=== PATIENT | female | born 1945 | race Caucasian/White ===

== ENCOUNTER 2024-05-06 14:46 | Inpatient (IN) | payer MEDICARE, MEDICAID ==
[~2024-05-06] VITALS: Ht 154.9 cm; Wt 42.9 kg
[~2024-05-06 14:46] MED LIST: MAGN296S89 PO
[2024-05-06 15:37] LABS: BASOPHILS % (AUTO) 0.5 % (0-1); EOSINOPHILS % (AUTO) 0.5 % (0-6); HEMATOCRIT 36.7 % (35.0-45.0); HEMOGLOBIN 12.4 g/dl (12.0-16.0); MEAN CORPUSCULAR HEMOGLOBIN 31.6 PG (27.0-31.0); MEAN CORPUSCULAR HGB CONC 33.7 g/dL (33.0-36.5); MEAN PLATELET VOLUME 7.8 FL (7.4-10.4); MONOCYTES # (AUTO) 0.4 X10'3 (0-0.9); NEUTROPHILS # (AUTO) 4.5 X10'3 (1.8-7.7); PLATELET COUNT 355 X10'3 (140-440); RED BLOOD COUNT 3.91 X10'6 (4.20-5.60); RED CELL DISTRIBUTION WIDTH 13.7 % (11.5-14.5); WHITE BLOOD COUNT 5.9 X10'3 (4.5-11.0)
[2024-05-06] MEDS: LIDOcaine 1% W/epiNEPHrine 1:100,000 20ml vial IJ ONE (15:55)
[2024-05-06 15:57] LABS: ALBUMIN 3.9 G/DL (3.4-5.0); ANION GAP 9 (8-16); BLOOD UREA NITROGEN 32 MG/DL (7-18); BUN/CREATININE RATIO 16.7 (10.0-20.0); CALCIUM 9.9 MG/DL (8.5-10.1); CHLORIDE 102 MMOL/L (99-107); CREATININE 1.92 MG/DL (0.40-0.90); GLUCOSE 99 MG/DL (70-104); POTASSIUM 4.2 MMOL/L (3.5-5.1); PRO BRAIN NATRIURETIC PEPTIDE 799 PG/ML (0-450); SODIUM 140 MMOL/L (135-145); TOTAL CARBON DIOXIDE 28.8 MMOL/L (24-32); eCRCL 16 ML/MIN; eGFR 25 ML/MIN
[2024-05-06 16:52] LABS: APTT 23 SECONDS (22-32); INR 0.9 INR; PROTHROMBIN TIME 9.9 SECONDS (9.0-12.0)
[2024-05-06] MEDS ORDERED: ondansetron/PF 4mg/2ml inj IV PRN (17:25)
[2024-05-06] MEDS ORDERED: magnesium sulf-water 4G/100mL 100 ML IV PRN (17:25)
[2024-05-06] MEDS ORDERED: potassium Cl 40MEQ/1/2NS 520ml 520 ML IV PRN (17:25)
[2024-05-06] MEDS ORDERED: potassium Cl 20 mEq SR tablet PO PRN ×2 (17:25)
[2024-05-06] MEDS ORDERED: magnesium Cl slow-release 64mg tablet PO PRN (17:25)
[2024-05-06] MEDS ORDERED: magnesium sulf-water 2g/50mL 50 ML IV PRN (17:25)
[2024-05-06] MEDS: methylPREDNISolone sod succ 125mg/2ml vial IV ONE (17:44)
[2024-05-06] MEDS: normal saline 1000ml 1,000 ML IV SCH (17:44)
[2024-05-06] MEDS: morphine 2 MG/ML inj. syringe IV ONE (17:44)
[2024-05-06] MEDS: ipratropium/albuterol 3ml nebule NEB ONE (17:56)
[2024-05-06 18:01] VITALS: PULSE 83; RESP 15; O2SAT 97
[2024-05-06 18:06] VITALS: PULSE 82; RESP 17; O2SAT 94
[2024-05-06] MEDS: albuterol 2.5 MG/3 ML nebule NEB SCH (20:00)
[2024-05-06 20:37] VITALS: PULSE 91; RESP 20; O2SAT 98
[2024-05-06] MEDS ORDERED: DULO60CA65 PO (21:52)
[2024-05-06] MEDS ORDERED: OMEP40CA21 PO (21:52)
[2024-05-06] MEDS ORDERED: MIRT-88 PO (21:52)
[2024-05-06] MEDS ORDERED: FLUT1BLS4 (21:52)
[2024-05-06] MEDS: CefTRIAXone 2gm/D5W 50ml BAG 50 ML IV SCH (21:57)
[2024-05-06] MEDS: heparin, porcine 5000 units/ml vial SQ SCH (21:57)
[2024-05-07] MEDS: traMADol 50MG tablet PO PRN (00:26)
[2024-05-07 03:03] LABS: BASOPHILS % (AUTO) 0.3 % (0-1); EOSINOPHILS % (AUTO) 0 % (0-6); HEMATOCRIT 34.7 % (35.0-45.0); HEMOGLOBIN 11.8 g/dl (12.0-16.0); LYMPHOCYTES # (AUTO) 0.5 X10'3 (1.1-4.8); LYMPHOCYTES % (AUTO) 11.9 % (21-51); MEAN CORPUSCULAR HEMOGLOBIN 31.6 PG (27.0-31.0); MEAN PLATELET VOLUME 7.7 FL (7.4-10.4); MONOCYTES # (AUTO) 0.1 X10'3 (0-0.9); MONOCYTES % (AUTO) 3.1 % (2-12); NEUTROPHILS # (AUTO) 3.8 X10'3 (1.8-7.7); NEUTROPHILS % (AUTO) 84.7 % (42-75); PLATELET COUNT 321 X10'3 (140-440); RED BLOOD COUNT 3.73 X10'6 (4.20-5.60); RED CELL DISTRIBUTION WIDTH 13.4 % (11.5-14.5); WHITE BLOOD COUNT 4.5 X10'3 (4.5-11.0)
[2024-05-07 03:16] LABS: ALBUMIN 3.6 G/DL (3.4-5.0); ANION GAP 8 (8-16); BLOOD UREA NITROGEN 30 MG/DL (7-18); BUN/CREATININE RATIO 19.5 (10.0-20.0); CALCIUM 9.4 MG/DL (8.5-10.1); CHLORIDE 102 MMOL/L (99-107); CREATININE 1.54 MG/DL (0.40-0.90); GLUCOSE 98 MG/DL (70-104); POTASSIUM 4.1 MMOL/L (3.5-5.1); SODIUM 141 MMOL/L (135-145); TOTAL CARBON DIOXIDE 31.3 MMOL/L (24-32); eCRCL 20 ML/MIN; eGFR 33 ML/MIN
[2024-05-07] MEDS: oxyCODONE IR 5mg (immed. release) tablet PO PRN (04:49)
[2024-05-07] MEDS: budesonide 0.5mg/2ml UD nebule IH SCH (08:00)
[2024-05-07] MEDS: pantoprazole 40mg Tablet.DR PO SCH (08:35)
[2024-05-07] MEDS: methylPREDNISolone sod succ 125mg/2ml vial IV SCH (08:35)
[2024-05-07] MEDS: LORazepam 1 MG tablet PO ONE (08:35)
[2024-05-07] MEDS: duloxetine 30mg CAPSULE.DR PO SCH (09:57)
[2024-05-07 11:30] VITALS: BP 162/102; PULSE 104; RESP 18; TEMP 98.7; O2SAT 96
[2024-05-07 14:59] VITALS: RESP 16
[2024-05-07] MEDS ORDERED: CALC0.2535 PO (15:33)
[2024-05-07] MEDS ORDERED: FLU VACC TS2024-25(6MOS UP)/PF 45 MCG/0.5 ML SYRINGE IMVAC ONE (16:05)
[2024-05-07 17:45] VITALS: BP 137/101; PULSE 109; RESP 18; O2SAT 96
[2024-05-07 18:00] VITALS: BP 156/94; PULSE 95; RESP 16; TEMP 98.2; O2SAT 96
[2024-05-07 20:21] VITALS: PULSE 94; RESP 18; O2SAT 94
[2024-05-07 22:00] VITALS: BP 164/90; PULSE 74; RESP 16; TEMP 97.9; O2SAT 97
[2024-05-08 06:00] VITALS: BP 183/92; PULSE 80; RESP 16; TEMP 98.8; O2SAT 95
[2024-05-08 06:51] LABS: BASOPHILS % (AUTO) 0.3 % (0-1); EOSINOPHILS % (AUTO) 0 % (0-6); HEMATOCRIT 32.7 % (35.0-45.0); HEMOGLOBIN 11.1 g/dl (12.0-16.0); LYMPHOCYTES # (AUTO) 0.9 X10'3 (1.1-4.8); LYMPHOCYTES % (AUTO) 14.4 % (21-51); MEAN CORPUSCULAR HEMOGLOBIN 31.6 PG (27.0-31.0); MEAN CORPUSCULAR HGB CONC 33.8 g/dL (33.0-36.5); MEAN CORPUSCULAR VOLUME 93.4 FL (78-98); MEAN PLATELET VOLUME 8.4 FL (7.4-10.4); MONOCYTES # (AUTO) 0.4 X10'3 (0-0.9); MONOCYTES % (AUTO) 5.8 % (2-12); NEUTROPHILS # (AUTO) 5.2 X10'3 (1.8-7.7); NEUTROPHILS % (AUTO) 79.5 % (42-75); PLATELET COUNT 313 X10'3 (140-440); RED BLOOD COUNT 3.51 X10'6 (4.20-5.60); RED CELL DISTRIBUTION WIDTH 13.3 % (11.5-14.5); WHITE BLOOD COUNT 6.6 X10'3 (4.5-11.0)
[2024-05-08 06:56] VITALS: BP 171/84; PULSE 76
[2024-05-08 07:03] LABS: ALBUMIN 3.2 G/DL (3.4-5.0); ANION GAP 7 (8-16); BLOOD UREA NITROGEN 30 MG/DL (7-18); BUN/CREATININE RATIO 21.1 (10.0-20.0); CALCIUM 9.3 MG/DL (8.5-10.1); CHLORIDE 102 MMOL/L (99-107); CREATININE 1.42 MG/DL (0.40-0.90); GLUCOSE 98 MG/DL (70-104); POTASSIUM 4.2 MMOL/L (3.5-5.1); SODIUM 138 MMOL/L (135-145); TOTAL CARBON DIOXIDE 29.4 MMOL/L (24-32); eCRCL 22 ML/MIN; eGFR 36 ML/MIN
[2024-05-08] MEDS: albuterol 2.5 MG/3 ML nebule NEB PRN (08:24)
[2024-05-08 08:28] VITALS: PULSE 86; RESP 18; O2SAT 97
[2024-05-08 08:36] VITALS: PULSE 87; RESP 18
[2024-05-08] MEDS: lisinopril 10 MG tablet PO ONE (09:09)
[2024-05-08 10:00] VITALS: BP 163/80; PULSE 98; RESP 21; TEMP 97.8; O2SAT 96
[2024-05-08] MEDS ORDERED: LEVO-65 PO (10:09)
[2024-05-08] MEDS ORDERED: PRED20TA PO (10:09)
== END 2024-05-08 12:40 | disposition home or self-care (01) | DRG 199 ==
LOC: ER 14:47 → ED HOLD 17:27 → ORTHO 4S 05-07 11:10
PROVIDERS: ADMIT Internal Medicine; ATTEND Internal Medicine
DX: J93.83 Other pneumothorax (principal); J96.21 Acute and chronic respiratory failure with hypoxia; N17.9 Acute kidney failure, unspecified; J44.9 Chronic obstructive pulmonary disease, unspecified; Z88.5 Allergy status to narcotic agent; N18.30 Chronic kidney disease, stage 3 unspecified; F17.290 Nicotine dependence, other tobacco product, uncomplicated; G89.29 Other chronic pain; Z66 Do not resuscitate; F32.A Depression, unspecified; M54.9 Dorsalgia, unspecified; Z88.6 Allergy status to analgesic agent
CPT/HCPCS: 36415; 71045; 71046; 71250; 80048; 83880; 84145; 85025; 85610; 85730; 87040; 87081; 93005; 93306; 94640; 94760; 96361; 96374; 96375; 97161; 97530; 99291; A4615; A6212; A6213; A6449; C1729; G0378; J0696; J1644; J2270; J2919; J7030; J7040